=== PATIENT | female | born 1960 | race African-American/Black ===

== ENCOUNTER 2025-03-10 14:13 | Emergency (ER) | payer MEDICAID ==
[~2025-03-10] VITALS: Ht 170.2 cm; Wt 90.7 kg
[2025-03-10] MEDS ORDERED: ONDANSETRON 4 MG TAB.RAPDIS ONE (15:51)
[2025-03-10] MEDS ORDERED: ONDANSETRON HCL 4 MG/5 ML SOLUTION ONE (15:51)
[2025-03-10] MEDS ORDERED: MORPHINE SULFATE INJ 4 MG/ML DISP.SYRIN ONE (15:51)
[2025-03-10] MEDS: MORPHINE SULFATE INJ 2 MG/ML DISP.SYRIN IM ONE (15:58)
[2025-03-10] MEDS: ONDANSETRON 4 MG TAB.RAPDIS SL ONE (15:58)
[2025-03-10 17:17] VITALS: BP 132/85; TEMP 98; O2SAT 97
== END 2025-03-10 17:17 | disposition home or self-care (01) ==
LOC: ER 14:18
DX: R07.81 Pleurodynia (principal); C95.91 Leukemia, unspecified, in remission; I10 Essential (primary) hypertension
CPT/HCPCS: 99283; 96372; 71100; J2270; Q0162

== ENCOUNTER 2025-04-16 18:04 | Emergency (ER) | payer MEDICAID ==
[~2025-04-16] VITALS: Ht 170.2 cm; Wt 95.3 kg
[2025-04-16 18:12] VITALS: TEMP 98.5
[2025-04-16] MEDS: IV NS 0.9% 500 ML BAG IV ONE (20:00)
[2025-04-16 20:16] LABS: PLATELET COUNT (AUTO) 250 K/uL (150-450); RED BLOOD CELL COUNT(AUTO) 3.49 MIL/uL (4.0-5.2); RED CELL DISTRIBUTION WIDTH 14.3 % (11.5-15.0); WHITE BLOOD COUNT (AUTO) 15.2 K/uL (4.3-11.0)
[2025-04-16 20:18] LABS: CALCIUM, SERUM 8.8 mg/dL (8.5-10.1); CREATININE 1.0 mg/dL (0.6-1.3); SODIUM SERUM 138 mmol/L (136-145); UREA NITROGEN, BLOOD 19 mg/dL (7-18)
[2025-04-16 20:22] LABS: INR 1.02 (0.91-1.10)
[2025-04-16 20:24] LABS: ASPARTATE AMINOTRANSFERASE 18 U/L (15-37); TOTAL PROTEIN, SERUM 7.6 g/dL (6.4-8.2)
[2025-04-16] MEDS ORDERED: IBUP-1490 PO (21:30)
[2025-04-16] MEDS ORDERED: HYDROCODONE/APAP 5/325MG TABLET ONE (21:39)
[2025-04-16] MEDS: HYDROCODONE/APAP 5/325MG TABLET PO ONE (21:42)
[2025-04-16 21:47] VITALS: BP 144/83; O2SAT 98
[2025-04-16 21:51] LABS: APPEARANCE,URINE SLIGHTLY CLOUDY (CLEAR); BLOOD, URINE NEGATIVE Ery/uL (NEGATIVE); LEUKOCYTE ESTERASE ,URINE TRACE (NEGATIVE); NITRITE, URINE POSITIVE (NEGATIVE); UGLUCOSE NEGATIVE (NEGATIVE)
[2025-04-16 22:05] LABS: ADD URINE CULTURE YES
== END 2025-04-16 21:51 | disposition home or self-care (01) ==
LOC: ER 18:10
DX: S00.93XA Contusion of unspecified part of head, initial encounter (principal); M17.0 Bilateral primary osteoarthritis of knee; I67.82 Cerebral ischemia; I10 Essential (primary) hypertension; G44.309 Post-traumatic headache, unspecified, not intractable; M47.816 Spondylosis without myelopathy or radiculopathy, lumbar region; E87.6 Hypokalemia; Z85.6 Personal history of leukemia; W06.XXXA Fall from bed, initial encounter; Y93.89 Activity, other specified; Y92.89 Other specified places as the place of occurrence of the external cause; Y99.9 Unspecified external cause status
CPT/HCPCS: 99285; 70450; 71045; 93005; 73564 ×2; 72131; 85025; 80048; 87086; 80076; 81001; 36415; 84443; 84484; 85730; J7040

== ENCOUNTER 2025-04-29 17:19 | Emergency (ER) | payer MEDICAID ==
[~2025-04-29] VITALS: Ht 170.2 cm; Wt 97.1 kg
[~2025-04-29 17:19] MED LIST: IBUP-1490 PO
[2025-04-29] MEDS ORDERED: IBUPROFEN 600 MG TABLET ONE (18:05)
[2025-04-29] MEDS: IBUPROFEN 600 MG TABLET PO ONE (18:29)
[2025-04-29] MEDS ORDERED: ACETAMINOPHEN ES 500 MG TABLET ONE (18:47)
[2025-04-29] MEDS: ACETAMINOPHEN ES 500 MG TABLET PO ONE (18:51)
[2025-04-29 19:57] VITALS: BP 138/78; TEMP 98.3; O2SAT 98
== END 2025-04-29 20:05 | disposition home or self-care (01) ==
LOC: ER 17:23
DX: S16.1XXA Strain of muscle, fascia and tendon at neck level, initial encounter (principal); S39.012A Strain of muscle, fascia and tendon of lower back, initial encounter; I10 Essential (primary) hypertension; S20.219A Contusion of unspecified front wall of thorax, initial encounter; Z85.6 Personal history of leukemia; V49.09XA Driver injured in collision with other motor vehicles in nontraffic accident, initial encounter; Y93.89 Activity, other specified; Y92.410 Unspecified street and highway as the place of occurrence of the external cause; Y99.8 Other external cause status
CPT/HCPCS: 71045-TC; 72125-TC; 72131-TC